=== PATIENT | male | born 1940 | race Caucasian/White ===

== ENCOUNTER 2020-10-13 12:43 | Inpatient (IN) | payer OTHER ==
[~2020-10-13] VITALS: Ht 180.3 cm; Wt 66.7 kg
--- NOTE | 2020-10-13 12:43 | NUR ---
BIBRA 102 FROM [facility] C/O BRIGHT RED VOMITING AND BLACK TARRY STOOL STARTED YESTERDAY. TO ER BED 8, HOOKED TO CLAIM CLERK, BP CUFF AND POX. CHANGED TO HOSP GOWN. PATIENT NOTED W TRACHEOSTOMY, ON COOL AEROSOL AT 6LPM O2, G-TUBE AND FLORES CATHETER. WARM BLANKET PROVIDED, PATIENT AAO x 1. BREATHING EVEN AND UNLABORED. AWAITING MD HEBERT.
--- NOTE | 2020-10-13 12:44 | NUR ---
DR BARNETT AT BEDSIDE
[2020-10-13] MEDS ORDERED: PANTOPRAZOLE 40 MG VIAL ONE ×2 (12:57→17:15)
[2020-10-13] MEDS ORDERED: CEFTRIAXONE 1GM BAG (ER ONLY) 50 ML IV ONE (12:57)
[2020-10-13] MEDS ORDERED: CEFTRIAXONE 1GM BAG (ER ONLY) 1 GM/50 ML PIGGYBACK IV ONE (13:00)
[2020-10-13] MEDS ORDERED: PANTOPRAZOLE 80 MG in IV NS 0.9% 500 ML IV ONE (13:00)
[2020-10-13] MEDS ORDERED: PANTOPRAZOLE 80 MG in IV NS 0.9% 100 ML IV ONE (13:00)
[2020-10-13 13:06] LABS: BASOPHILS % (AUTO) 0.2 % (0.0-2.0); EOSINOPHILS % (AUTO) 0.3 % (0.0-6.0); HEMATOCRIT 34 % (39-51); HEMOGLOBIN 11.1 g/dL (13.5-17.5); LYMPHOCYTES # (AUTO) 0.5 /CMM (0.8-4.8); LYMPHOCYTES % (AUTO) 4.2 % (20.0-44.0); MEAN CORPUSCULAR HGB CONC 33 g/dl (31.0-36.0); MEAN CORPUSCULAR VOLUME 97 fL (80-96); MONOCYTES # (AUTO) 0.8 /CMM (0.1-1.30); NEUTROPHILS # (AUTO) 11.5 /CMM (1.8-8.9); NEUTROPHILS % (AUTO) 89.3 % (43.0-81.0); PLATELET COUNT (AUTO) 387 /CMM (150-450); RED BLOOD CELL COUNT(AUTO) 3.51 MIL/uL (4.5-6.0); WHITE BLOOD COUNT (AUTO) 12.9 K/uL (4.3-11.0)
[2020-10-13 13:14] LABS: CALCIUM, SERUM 9.6 mg/dL (8.5-10.1); CARBON DIOXIDE 28 mmol/L (21-32); CHLORIDE 101 mmol/L (98-107); CREATININE 0.9 mg/dL (0.6-1.3); GLUCOSE 140 mg/dL (74-106); POTASSIUM 4.6 mmol/L (3.5-5.1); SODIUM SERUM 137 mmol/L (136-145); UREA NITROGEN, BLOOD 50 mg/dL (7-18)
[2020-10-13 13:21] LABS: ALANINE AMINOTRANSFERASE 23 U/L (12-78); ALBUMIN 2.8 g/dL (3.4-5.0); ALKALINE PHOSPHATASE 122 U/L (46-116); ASPARTATE AMINOTRANSFERASE 19 U/L (15-37); BILIRUBIN,DIRECT 0.1 mg/dL (0.0-0.2); BILIRUBIN,TOTAL 0.4 mg/dL (0.2-1.0); LIPASE 83 U/L (73-393); TOTAL PROTEIN, SERUM 8.4 g/dL (6.4-8.2)
--- NOTE | 2020-10-13 13:22 | NUR ---
MOVE SHEET SUBMITTED.
--- NOTE | 2020-10-13 13:34 | NUR ---
[facility] CALLED LOG SORTER PAGED.
--- NOTE | 2020-10-13 13:36 | NUR ---
PATIENT BACK FROM CT SCAN. PER HAM STRIPPER, NOT ABLE TO DO CT ABDOMEN W CONTRAST DUE TO PATIENTS SHAKING. PATIENT IS COOL TO TOUCH, PROVIDED PATIENT WITH WARM BLANKET AND PAIR OF SOCKS. MADE AWARE
[2020-10-13] MEDS ORDERED: QUET50TA GT (13:53)
[2020-10-13] MEDS ORDERED: LORA-259 GT (13:53)
[2020-10-13] MEDS ORDERED: ASCO500C17 GT (13:53)
[2020-10-13] MEDS ORDERED: ASPI-1169 GT (13:53)
[2020-10-13] MEDS ORDERED: ALBU0.633 IH (13:53)
[2020-10-13] MEDS ORDERED: SENN8.6T19 GT (13:53)
[2020-10-13] MEDS ORDERED: CALC500T89 GT (13:53)
[2020-10-13] MEDS ORDERED: MULT-439 GT (13:53)
[2020-10-13] MEDS ORDERED: CLON0.5T GT (13:53)
[2020-10-13] MEDS ORDERED: MAGN400O6 GT (13:53)
[2020-10-13] MEDS ORDERED: AMIN887L GT (13:53)
[2020-10-13] MEDS ORDERED: FERR325T23 GT (13:53)
[2020-10-13] MEDS ORDERED: RIVA10TA GT (13:53)
[2020-10-13] MEDS ORDERED: ACET325T53 GT (13:53)
[2020-10-13] MEDS ORDERED: ATOR40TA GT (13:53)
[2020-10-13] MEDS ORDERED: SODI100037 GT (13:53)
[2020-10-13] MEDS ORDERED: ACETAMINOPHEN 325 MG TABLET PO PRN (14:00)
[2020-10-13] MEDS ORDERED: Z GUARD REMEDY 2 OZ OINT TP PRN (14:00)
[2020-10-13] MEDS ORDERED: ZOLPIDEM TARTRATE 5 MG TABLET PO PRN (14:00)
[2020-10-13] MEDS ORDERED: IV NS 0.9% 1,000 ML IV PRN (14:00)
[2020-10-13] MEDS ORDERED: ONDANSETRON HCL/PF 4 MG/2 ML VIAL IVP PRN (14:00)
--- NOTE | 2020-10-13 14:42 | NUR ---
DR ORTEGA MADE AWARE OF PATIENT STILL SHAKING. RECEIVED VERBAL ORDER OF ATIVAN 1MG IVP. CARRIED OUT
[2020-10-13] MEDS ORDERED: LORAZEPAM INJ 2 MG/ML VIAL ONE (14:44)
[2020-10-13] MEDS ORDERED: LORAZEPAM INJ 2 MG/ML VIAL IV ONE (15:00)
--- NOTE | 2020-10-13 15:09 | NUR ---
PICKED UP BY [facility] VIA [facility] FOR CT SCAN
[2020-10-13] MEDS ORDERED: IOHEXOL-300 100 ML VIAL IV ONE (15:10)
[2020-10-13] MEDS ORDERED: IV NS 0.9% 250 ML IV ONE (15:11)
--- NOTE | 2020-10-13 15:30 | NUR ---
RAPID AND PCR COVID SWAB DONE AND SENT TO LAB
--- NOTE | 2020-10-13 16:30 | NUR ---
GOT BED 102
--- NOTE | 2020-10-13 16:39 | NUR ---
LAB CALLED PT COVID RESULT NEGATIVE (-)
[2020-10-13] MEDS: PANTOPRAZOLE 40 MG VIAL IV SCH (17:22)
--- NOTE | 2020-10-13 18:55 | NUR ---
REPORT GIVEN TO PEREZ DOWNS OF [facility]
--- NOTE | 2020-10-13 19:40 | NUR ---
MEDICAL INSURANCE CLERK NOTES RECEIVED PTS FROM ER, A MALE 79Y/O NON VERBAL ,WITH ADMITTING DX OF GI BLEED , PTS ON COOL AEROSOL AT 6LITERS OF 02 , SHILEY #[address] -119 ON THE MONITOR, NO SOB NO DISTRESS NOTED SATING 98% ADMISSION ROUTINE CARE RENDERED , ADMISSION VERIFICATION OF ORDER DONE ,ORDER NOTED AND CARRIED OUT , BODY CHECKED DONE NOTED WITH REDNESS ON SACROCOCCYX , WITH RIGHT AC G#18 INTACT AND PATENT , IVF OF NS AT 100CC/HR INFUSING WELL , ALL NEEDS ATTENDED TOO PTS IS NPO STATUS V/S STABLE AFEBRILE .WILL CONTINUE TO MONITOR PTS .
[2020-10-13 19:56] VITALS: BP 144/77
[2020-10-13] MEDS: IV NS 0.9% 1,000 ML IV PRN (20:54)
[2020-10-14] VITALS: BP 96/55
[2020-10-14] MEDS ORDERED: ACETAMINOPHEN 650 MG/SUPP.RECT RC PRN
--- NOTE | 2020-10-14 00:10 | NUR ---
telecommunications field technician notes pts noted with temp 100 tylenol suppository given as ordered colling measures applied will continue to monitor pts.
--- NOTE | 2020-10-14 01:00 | NUR ---
telecasting engineer notes PTS NOTED BITTING AND PULLING INVASIVE TUBING , WILL CONTINUE TO MONITOR PTS.
[2020-10-14 04:00] VITALS: BP 102/55
[2020-10-14 05:33] LABS: EOSINOPHILS % (AUTO) 0.6 % (0.0-6.0); HEMATOCRIT 30 % (39-51); HEMOGLOBIN 10.2 g/dL (13.5-17.5); LYMPHOCYTES # (AUTO) 0.4 /CMM (0.8-4.8); LYMPHOCYTES % (AUTO) 1.7 % (20.0-44.0); MEAN CORPUSCULAR HGB CONC 34 g/dl (31.0-36.0); MEAN CORPUSCULAR VOLUME 95 fL (80-96); MONOCYTES # (AUTO) 0.3 /CMM (0.1-1.30); MONOCYTES % (AUTO) 1.5 % (2.0-12.0); NEUTROPHILS # (AUTO) 21.4 /CMM (1.8-8.9); NEUTROPHILS % (AUTO) 96.2 % (43.0-81.0); PLATELET COUNT (AUTO) 369 /CMM (150-450); RED BLOOD CELL COUNT(AUTO) 3.19 MIL/uL (4.5-6.0); WHITE BLOOD COUNT (AUTO) 22.3 K/uL (4.3-11.0)
[2020-10-14 05:59] LABS: ALANINE AMINOTRANSFERASE 19 U/L (12-78); ALBUMIN 2.6 g/dL (3.4-5.0); ALKALINE PHOSPHATASE 102 U/L (46-116); ASPARTATE AMINOTRANSFERASE 19 U/L (15-37); BILIRUBIN,TOTAL 0.7 mg/dL (0.2-1.0); CALCIUM, SERUM 9.1 mg/dL (8.5-10.1); CARBON DIOXIDE 27 mmol/L (21-32); CHLORIDE 104 mmol/L (98-107); CREATININE 1.4 mg/dL (0.6-1.3); GLUCOSE 107 mg/dL (74-106); MAGNESIUM 1.9 mg/dL (1.8-2.4); PHOSPHORUS 5.5 mg/dL (2.5-4.9); POTASSIUM 4.4 mmol/L (3.5-5.1); SODIUM SERUM 143 mmol/L (136-145); TOTAL PROTEIN, SERUM 7.8 g/dL (6.4-8.2); UREA NITROGEN, BLOOD 58 mg/dL (7-18)
[2020-10-14 06:00] LABS: IRON, SERUM 7 ug/dl (50-175); TOTAL IRON BINDING CAPACITY 223 ug/dl (250-450)
--- NOTE | 2020-10-14 06:00 | NUR ---
SLUBBER OPERATOR NOTES PTS STILL NOTED WITH PULLING INVASIVE TUBING . FREQUENT CHECK DONE .MD MADE AWARE DR OJEDA WITH ORDER BILATERAL MITTENS TO PREVENT FROM PULLING INVASIVE TUBING, WILL CONTINUE TO MONITOR.
--- NOTE | 2020-10-14 06:38 | NUR ---
PAYROLL ADMINISTRATIVE ASSISTANT NOTES PTS REMAINS IN BED ON COOL AEROSOL ,NPO STATUS , ON BILATERAL MITTENS TO PREVENT PULLING INVASIVE TUBING ON TELE SR ON THE MONITOR .NO SOB NO DISTRESS NOTED .WILL ENDORSE TO RN DAY SHIFT FOR CONTINUITY OF CARE.
--- NOTE | 2020-10-14 07:38 | NUR ---
RN OPENING NOTE RECEIVED PATIENT IN BED WITH HOB AT SEMI HERNANDEZ'S POSITION. PATIENT IS CURRENTLY ON TPIECE WITH 6L OF O2. SUCTION EQUIPMENT IS AT BEDSIDE. PATIENT IS AOX1. FLORES CATHETER IS IN PLACE. SACRAL REDNESS NOTED. GTUBE IS IN PLACE WITH NO REDNESS. RAC IS IN PLACE, PATENT, AND HAS NO SIGNS OF INFILTRATION. BED IS LOCKED IN THE LOWEST POSITION, 3 GUARD RAILS RAISED, CALL SAMUELS WITHIN REACH, AND ALL HOSPITAL SAFETY PRECAUTIONS ARE BEING FOLLOWED.
--- NOTE | 2020-10-14 07:49 | NUR ---
pt. is awake but unable to follow commands decrease o2 flow from 6 lpm to 2 lpm o2 flow. spo2 98% on 2 lpm o2 flow, no increase work of breathing noted. Addendum: 10/14/20 at 0752 by GLENN MARTINO RT Amended: Links added.
[2020-10-14 08:00] VITALS: BP 96/50
[2020-10-14] MEDS: PANTOPRAZOLE 40 MG VIAL IV SCH ×2 (08:07→17:07)
[2020-10-14] MEDS ORDERED: CEFTRIAXONE 1 G in IV D5W 50 ML IV SCH (09:00)
[2020-10-14] MEDS ORDERED: diphenhydrAMINE HCL 50 MG/ML VIAL IV PRN (11:00)
[2020-10-14] MEDS: IV NS 0.9% 1,000 ML IV PRN (11:53)
[2020-10-14 12:00] VITALS: BP 106/56
[2020-10-14] MEDS ORDERED: LEVOFLOXACIN 500 MG /D5W 100ML 500 MG in PREMIX 1 EA IV ONE (12:00)
[2020-10-14] MEDS ORDERED: PIPERACILLIN /TAZOBACTAM 4.5 G in IV D5W 50 ML IV SCH (12:00)
[2020-10-14 16:00] VITALS: BP 96/56
--- NOTE | 2020-10-14 18:58 | NUR ---
RN CLOSING NOTE PATIENT IS IN BED WITH HOB AT SEMI FOWLERS POSITION. TPIECE WITH 2L ARE APPLIED. PATIENT IS AOX1. SACRAL REDNESS IS NOTED. GTUBE IS IN PLACE WITH NO SIGNS OF INFECTION BUT HAS GREENISH DRAINAGE. RAC #18 IS PATENT, INTACT, AND HAS NO SIGNS OF INFILTRATION. BED IS LOCKED IN THE FLORES IS IN PLACE. BED IS LOCKED IN THE LOWEST POSITION, 3 GUARD RAILS RAISED, CALL SAMUELS WITHIN REACH, AND ALL HOSPITAL SAFETY PRECAUTIONS ARE BEING FOLLOWED.
[2020-10-14 20:00] VITALS: BP 105/58
[2020-10-15] VITALS (7 sets, daily range): BP systolic 109–139; BP diastolic 58–91
[2020-10-15] MEDS: IV NS 0.9% 1,000 ML IV PRN ×2 (02:00→13:22)
--- NOTE | 2020-10-15 06:30 | NUR ---
RN CLOSING NOTE, PATIENT IS IN BED, A/O TO SELF, ON T-PIECE WITH 2L 02, SR WITH HR 90S, IN TELE MONITOR AT THIS TIME, MOSTLY SINUS 110-110S, RAC #18 IS PATENT INTACT, NO SIGNS OF INFILTRATION, IVF INFUSING ORDERED, WELL AND PATIENT TOLERATED WELL, NPO FOR POSSIBLE NEPHROSTOMY, FLORES IS IN PLACE, WITH 400ML OUTPUT DURING THE NIGHT, NO SIGNIFICANT CHANGE IN CONDITION DURING THE NIGHT, BED IS LOCKED IN THE LOWEST POSITION, CALL SAMUELS WITHIN REACH, SAFETY PRECAUTIONS IN PLACE, WILL ENDORSE CONTINUITY OF CARE TOO ONCOMING NURSE.
--- NOTE | 2020-10-15 07:45 | NUR ---
CELL MAKER NOTES PATIENT RECEIVED IN BED, ALERT AND ORIENTED X 1. T-PIECE IN PLACE, 2 LITERS OXYGEN WITH NO SIGNS OF RESPIRATORY DISTRESS AT THIS TIME, WITH NON-LABORED BREATHING AN NO SOB NOTED. ON SALES DIRECTOR SINUS RHYTHM 90'S. PATIENT HAS BILATERAL SOFT MITTENS IN PLACE, WITH ADEQUATE SKIN CIRCULATION PRESENTS. FLORES CATHETER INTACT AND IN PLACE WITH URINE FLOWING BY GRAVITY. G-TUBE SITE INTACT AND IN PLACE CLAMPED AT THIS TIME. PATIENT PRESENTING WITH NO PAIN OR DISCOMFORT AT THIS TIME. IV ACCESS INTACT AND PATENT, CURRENTLY INFUSING IV FLUIDS. SAFETY PRECAUTIONS IMPLEMENTED WITH BED LOCKED, BILATERAL SIDE RAILS UP, BED IN LOWEST POSITION, BED ALARM ON, AND CALL LIGHT WITHIN EASY REACH. WILL CONTINUE TO MONITOR PATIENT.
[2020-10-15] MEDS: PANTOPRAZOLE 40 MG VIAL IV SCH ×2 (08:18→16:55)
[2020-10-15 08:36] LABS: BILIRUBIN,URINE NEGATIVE (NEGATIVE); COLOR,URINE YELLOW (YELLOW); LEUKOCYTE ESTERASE ,URINE LARGE (NEGATIVE); NITRITE, URINE POSITIVE (NEGATIVE); PH,URINE 8.5 (5.0-8.0); PROTEIN,URINE 30 mg/dl (NEGATIVE); UGLUCOSE NEGATIVE (NEGATIVE); UROBILINOGEN,URINE 0.2 EU/dL (0.2)
--- NOTE | 2020-10-15 09:35 | NUR ---
WOUND CARE CONSULT: REVIEWED CHART, NURSING DOCUMENTATION AND PHOTO WHICH INDICATES SACRAL SCAR, PRESENT ON ADMISSION. RECOMMENDATIONS MADE FOR SKIN PROTECTION. DISCUSSED WITH NURSING STAFF. MD IN AGREEMENT WITH PLAN OF CARE. PT IS ON [facility] LOW AIRLOSS BED.
[2020-10-15 09:43] LABS: BASOPHILS % (AUTO) 0.1 % (0.0-2.0); EOSINOPHILS % (AUTO) 5.4 % (0.0-6.0); HEMATOCRIT 28 % (39-51); HEMOGLOBIN 9.2 g/dL (13.5-17.5); LYMPHOCYTES # (AUTO) 0.4 /CMM (0.8-4.8); LYMPHOCYTES % (AUTO) 2.4 % (20.0-44.0); MEAN CORPUSCULAR HGB CONC 33 g/dl (31.0-36.0); MEAN CORPUSCULAR VOLUME 97 fL (80-96); MONOCYTES # (AUTO) 0.4 /CMM (0.1-1.30); MONOCYTES % (AUTO) 2.2 % (2.0-12.0); NEUTROPHILS # (AUTO) 14.9 /CMM (1.8-8.9); NEUTROPHILS % (AUTO) 89.9 % (43.0-81.0); PLATELET COUNT (AUTO) 306 /CMM (150-450); RED BLOOD CELL COUNT(AUTO) 2.92 MIL/uL (4.5-6.0); WHITE BLOOD COUNT (AUTO) 16.6 K/uL (4.3-11.0)
[2020-10-15 09:55] LABS: CALCIUM, SERUM 8.6 mg/dL (8.5-10.1); POTASSIUM 3.5 mmol/L (3.5-5.1)
[2020-10-15 11:31] LABS: BACTERIA,URINE 1+ /HPF (None Seen); RBC,URINE 0-2 /HPF (0-2); SQUAMOUS EPITHELIAL CELL,UR Rare /HPF (None Seen); TRIPLE PHOSPHATE CRYSTAL,UR Moderate /HPF (None Seen)
[2020-10-15] MEDS ORDERED: LEVOFLOXACIN 250 MG /D5W 50 ML 250 MG in PREMIX 1 EA IV SCH (12:00)
--- NOTE | 2020-10-15 12:00 | NUR ---
MARKETING AND COMMUNICATIONS OFFICER NOTES HELD LEVAQUIN DOSE SCHEDULE AT 1200 DUE TO PATIENT SKIN RED/PINK TONE. INFORMED RAFAL KLEIN DIESEL MOTOR MECHANIC ORDERED TO HOLD DOSE FOR TODAY AND TO CONTINUE TO MONITOR PATIENT.
[2020-10-15] MEDS ORDERED: FENTANYL PF 250MCG/5ML AMPUL IV ONE (16:00)
[2020-10-15] MEDS ORDERED: NALOXONE PREFILLED SYRINGE 2 MG/2 ML SYRINGE IV ONE (16:00)
[2020-10-15] MEDS ORDERED: MIDAZOLAM HCL 5MG/ML VIAL 25 MG/5 ML VIAL IV ONE (16:00)
[2020-10-15] MEDS: MEROPENEM 500 MG in IV NS 0.9% 50 ML IV SCH (16:29)
[2020-10-15] MEDS: VANCOMYCIN 1 GM in IV D5W 250 ML IV SCH (16:56)
--- NOTE | 2020-10-15 18:30 | NUR ---
HEALTH ASSESSMENT AND TREATMENT TEACHER NOTES PATIENT IN BED SCHEDULED FOR EGD AWAITING OR NURSE, ALERT AND ORIENTED X 1. T-PIECE IN PLACE, 2 LITERS OXYGEN WITH NO SIGNS OF RESPIRATORY DISTRESS AT THIS TIME, WITH NON-LABORED BREATHING AN NO SOB NOTED. ON MAINTENANCE AND REPAIR WORKER SINUS RHYTHM 90'S. PATIENT HAS BILATERAL SOFT MITTENS IN PLACE, WITH ADEQUATE SKIN CIRCULATION PRESENTS. FLORES CATHETER INTACT AND IN PLACE WITH URINE FLOWING BY GRAVITY. G-TUBE SITE INTACT AND IN PLACE CLAMPED AT THIS TIME. PATIENT PRESENTING WITH NO PAIN OR DISCOMFORT AT THIS TIME. IV ACCESS INTACT AND PATENT, CURRENTLY INFUSING IV FLUIDS. MET ALL OF PATIENT'S NEEDS. SAFETY PRECAUTIONS IMPLEMENTED. PATIENT WILL GO FOR EGD AND WILL ENDORSE PLAN OF CARE TO UPCOMING RN.
--- NOTE | 2020-10-15 19:20 | NUR ---
REPORT RECIEVED FROM SHARON RN FROM POST OP; PT HAD EGD PERFORMED AND WAS TO TRANSFER TO [facility] BED 1 FROM [facility]. CALL MADE TO JENNIFER AND NURSE NOT READY TO GIVE REPORT; NOTIFIED SOON A AND P MECHANIC THAT PT WAS BEING BROUGHT UP FROM OR TO ROOM.
--- NOTE | 2020-10-15 19:30 | NUR ---
PT PLACED IN 327 BED 1 BY OR STAFF. PT TRACHED AND WITH T PIECE. CONNECTED TO WALL OXYGEN AT 2LITERS. PT IN NO APPARENT DISTRESS. POST OP VS MONITORING INITATED. PT IN NO APPARENT DISTRESS. NEW ORDERS RECIEVED. WILL CONT TO MONITOR. REPORT WRITTEN OUT BY DAY SHIFT YARELI DALAL. WILL CONT TO MONITOR. IVF NS RUNNING TO LEFT UPPER ARM MIDLINE.
[2020-10-15] MEDS ORDERED: METOCLOPRAMIDE HCL 10 MG/2 ML VIAL IV PRN (20:00)
--- NOTE | 2020-10-15 20:11 | NUR ---
RN NOTE AWAITING FOR PT TO COME FROM EGD TO TRANSFER PT TO [facility]. FOUND OUT PT WAS ALREADY BROUGHT TO [facility] AT 1920. GAVE REPORT TO KOREY.
[2020-10-15] MEDS ORDERED: GLUCERNA 1.2 1,000 ML BOTTLE NG PRN (20:30)
--- NOTE | 2020-10-15 20:37 | NUR ---
gtf order clarified pt to start glucerna 1.2 alice at 30 ml per hour since npo to advance to 50 ml per hour x20 hours. fns consult ordered to review gtf for tomorrow.
[2020-10-16] VITALS: BP 148/88
--- NOTE | 2020-10-16 | NUR ---
gtf started at 30 ml per hour. no residual noted, gt is patent and auscultated. given 120 ml flush with water.
[2020-10-16] MEDS: MEROPENEM 500 MG in IV NS 0.9% 50 ML IV SCH ×4 (00:03→23:10)
[2020-10-16] MEDS: METOCLOPRAMIDE HCL 10 MG/2 ML VIAL IV SCH ×4 (00:16→17:27)
--- NOTE | 2020-10-16 02:00 | NUR ---
gtf residual noted to be 20 ml, rate increased to 40 ml
[2020-10-16] MEDS: VANCOMYCIN 1 GM in IV D5W 250 ML IV SCH ×2 (03:46→16:46)
[2020-10-16 04:00] VITALS: BP 135/71
--- NOTE | 2020-10-16 04:00 | NUR ---
gtf residual noted to be 30; rate increased to 50 ml per hour.
[2020-10-16 08:00] VITALS: BP 133/133
[2020-10-16] MEDS: PANTOPRAZOLE 40 MG VIAL IV SCH ×2 (08:52→17:27)
[2020-10-16] MEDS: IV NS 0.9% 1,000 ML IV PRN ×2 (09:09→23:10)
--- NOTE | 2020-10-16 14:00 | NUR ---
SPUTUM CULTURE SENT PER RESP. TX.
[2020-10-16 16:00] VITALS: BP 136/63
--- NOTE | 2020-10-16 18:00 | NUR ---
RECEIVED PT. IN AM TRACH IN PLACE. BIANCA. MITTENS ON .TUBE FEED. AND IV INFUSING F/C IN PLACE. NO ACUTE DISTRESS.OVER ALL SKIN COLOR RATHER BRIGHT PINK,HAS BEEN PREVIOUSLY NOTED.
[2020-10-16 20:00] VITALS: BP 148/83
--- NOTE | 2020-10-17 00:15 | NUR ---
tube feeding held for scheduled 4 hours off.
--- NOTE | 2020-10-17 00:30 | NUR ---
SHARLA FAMILY/FRIEND CALLED UPDATED WITH PATIENTS CURRENT CONDITION, QUESTIONS CONCERNS ADDRESSED.
[2020-10-17] MEDS: VANCOMYCIN 1 GM in IV D5W 250 ML IV SCH ×2 (02:50→16:52)
--- NOTE | 2020-10-17 03:22 | NUR ---
informed supervising broker keh of music intern recommendations to change tf to jevity new orders recieved to start jevity 70 ml per hour x24hrs.
[2020-10-17] MEDS ORDERED: JEVITY 1.2 CAL 1,000 ML BOTTLE GT PRN (03:30)
[2020-10-17] MEDS: JEVITY 1.2 CAL 1,000 ML BOTTLE GT PRN (05:55)
[2020-10-17] MEDS: MEROPENEM 500 MG in IV NS 0.9% 50 ML IV SCH ×3 (05:58→23:02)
--- NOTE | 2020-10-17 07:52 | NUR ---
MS/RN OPENING NOTES RECEIVED PATIENT ON BED. ALERT AND ORIENTED X1. PATIENT IS ON 2L OXYGEN VIA T- PIECE SATURATION 100%. PATIENT IN NO APPARENT RESPIRATORY DISTRESS NOTED. NO SIGN AND SYMPTOM OF PAIN NOTED AT THIS TIME. WILL CONTINUE TO MONITOR.
[2020-10-17 08:00] VITALS: BP 138/75
[2020-10-17 08:03] LABS: EOSINOPHILS % (AUTO) 5.8 % (0.0-6.0); HEMATOCRIT 29 % (39-51); HEMOGLOBIN 9.6 g/dL (13.5-17.5); LYMPHOCYTES # (AUTO) 0.8 /CMM (0.8-4.8); MEAN CORPUSCULAR HGB CONC 34 g/dl (31.0-36.0); MEAN CORPUSCULAR VOLUME 96 fL (80-96); MONOCYTES # (AUTO) 0.5 /CMM (0.1-1.30); MONOCYTES % (AUTO) 6.3 % (2.0-12.0); NEUTROPHILS # (AUTO) 6.7 /CMM (1.8-8.9); NEUTROPHILS % (AUTO) 78.9 % (43.0-81.0); PLATELET COUNT (AUTO) 254 /CMM (150-450); RED BLOOD CELL COUNT(AUTO) 2.97 MIL/uL (4.5-6.0); WHITE BLOOD COUNT (AUTO) 8.5 K/uL (4.3-11.0)
[2020-10-17 08:23] LABS: CALCIUM, SERUM 8.9 mg/dL (8.5-10.1); CREATININE 0.7 mg/dL (0.6-1.3)
[2020-10-17] MEDS: METOCLOPRAMIDE HCL 10 MG/2 ML VIAL IV SCH ×3 (08:50→17:33)
[2020-10-17] MEDS: PANTOPRAZOLE 40 MG VIAL IV SCH ×2 (08:50→17:33)
[2020-10-17 09:43] LABS: POTASSIUM 2.7 mmol/L (3.5-5.1)
--- NOTE | 2020-10-17 09:55 | NUR ---
MS/RN NOTES POTASSIUM 2.7 SARAH FONG ATM MECHANIC IS AWARE. NO NEW ORDER AT THIS TIME.
[2020-10-17] MEDS: IV NS 0.9% 1,000 ML IV PRN (11:09)
[2020-10-17] MEDS: POTASSIUM CL. PREMIX PERIPHER. 50 ML IV SCH ×6 (11:09→15:18)
[2020-10-17] MEDS ORDERED: LORAZEPAM 1 MG TABLET GT PRN (13:00)
[2020-10-17] MEDS: PROSOURCE / PROSTAT (PYXIS) 30 ML UDC GT SCH ×2 (13:08→17:33)
[2020-10-17 16:00] VITALS: BP 120/60
[2020-10-17] MEDS ORDERED: Medication Not On Formulary EA (Quetiapine Fumarate (Seroquel) 50 MG) GT SCH (17:00)
[2020-10-17] MEDS: clonazePAM 0.5 MG TABLET GT SCH (17:33)
--- NOTE | 2020-10-17 19:30 | NUR ---
MS/RN OPENING NOTE RECEIVED PATIENT RESTING IN BED. AWAKE, ALERT AND ORIENTED X 1. CONTINUES ON MECHANICA VENT WITH PATIENT TOLERATING SETTINGS WELL. IV ACCESS TO LEFT UPPER ARM INTACT AND PATENT. CONTINUES ON IV FLUIDS. FLORES CATHETER PATENT DRAINING CLEAR YELLOW URINE. NO SIGNS OR SYMPTOMS OF PAIN NOTED AT THIS TIME. CALL LIGHT WITHIN REACH. ASPIRATION, FALL AND SAFETY PRECAUTIONS MAINTAINED. WILL CONTINUE TO MONITOR.
--- NOTE | 2020-10-17 19:38 | NUR ---
MS/RN CLOSING NOTES PATIENT IS ON BED. NON VERBAL. PATIENT IS ON 5L OXYGEN VIA T PIECE FIO2 28%. PATIENT IN NO APPARENT RESPIRATORY DISTRESS NOTED. NO SIGN AND SYMPTOM OF PAIN NOTED AT THIS TIME. SEEN AND EXAMINED BY MD WITH ORDERS MADE AND CARRIED OUT. ALL DUE MEDICATIONS WAS GIVEN. SAFETY PRECAUTIONS WAS IN PLACED. BED IN LOWEST POSITION AND LOCKED. WILL ENDORSED TO SOLE FILLER FOR KAIN. Addendum: 10/17/20 at 1941 by JAVON FREED RN ERROR
--- NOTE | 2020-10-17 19:42 | NUR ---
MS/RN CLOSING NOTES PATIENT IS ON BED. ALERT AND ORIENTED X1. PATIENT IS ON 5L OXYGEN VIA T PIECE FIO2 28%. PATIENT IN NO APPARENT RESPIRATORY DISTRESS NOTED. NO SIGN AND SYMPTOM OF PAIN NOTED AT THIS TIME. SEEN AND EXAMINED BY MD WITH ORDERS MADE AND CARRIED OUT. ALL DUE MEDICATIONS WAS GIVEN. SAFETY PRECAUTIONS WAS IN PLACED. BED IN LOWEST POSITION AND LOCKED. WILL ENDORSED TO STREET VENDOR FOR KAIN.
[2020-10-17 20:00] VITALS: BP 142/72
--- NOTE | 2020-10-17 21:35 | NUR ---
MS/TELE/RN RECEIVED PATIENT AWAKE, ALERT, COMFORTABLE, NO C/O PAIN, NO DISTRESS NOTED, ON T PIECE WITH 5L O2, FALL PRECAUTIONS PER PROTOCOL, CALL LIGHT IN REACH. WILL MONITOR.
[2020-10-17] MEDS ORDERED: ATORVASTATIN 40 MG TABLET GT SCH (22:00)
[2020-10-18] MEDS: VANCOMYCIN 1 GM in IV D5W 250 ML IV SCH ×2 (02:26→15:32)
[2020-10-18] MEDS: JEVITY 1.2 CAL 1,000 ML BOTTLE GT PRN (05:58)
[2020-10-18] MEDS: MEROPENEM 500 MG in IV NS 0.9% 50 ML IV SCH (06:05)
--- NOTE | 2020-10-18 06:23 | NUR ---
PATIENT RECEIVED ON 28% AEROSOL T-TUBE, TOLERATING WITH NO DISTRESS/SOB NOTED. SUCTIONED FOR MINIMAL, THICK, YELLOW SECRETIONS. AMBU BAG AT BEDSIDE. PULSE OXIMETER ALARM AUDIBLE AND VISIBLE. Addendum: 10/18/20 at 0624 by ISAAC PHIPPS RT Amended: Links added.
--- NOTE | 2020-10-18 06:33 | NUR ---
MS/RN CLOSING NOTE PATIENT CURRENTLY SLEEPING IN BED. ALERT AND ORIENTED X 1. NO SIGNS OR SYMPTOMS OF PAIN NOTED THIS SHIFT. CONTINUES ON JEVITY TUBE FEED WITH 50CC RESIDUAL NOTED. IV ACCESS TO LEFT UPPER ARM INTACT AND PATENT. CONTINUES ON IV VANCOMYCIN AND MERAPENEM. FLORES CATHETER PATENT DRAINING CLEAR YELLOW URINE. VS: BP 142/72 HR 78 RR 16 T 98.4 O2 SAT 96% ON 5L T-PIECE. NO SIGNS OR SYMPTOMS OF RESPIRATORY DISTRESS THIS SHIFT. CALL LIGHT WITHIN REACH. ASPIRATION, FALL AND SAFETY PRECAUTIONS MAINTAINED. WILL ENDORSE PLAN OF CARE TO ONCOMING SHIFT.
--- NOTE | 2020-10-18 07:37 | NUR ---
MS/RN OPENING NOTES RECEIVED PATIENT ON BED, AWAKE, ALERT AND ORIENTED X1. PATIENT IS ON 2L OXYGEN VIA T- PIECE SATURATION 96%. PATIENT IN NO APPARENT RESPIRATORY DISTRESS NOTED. NO SIGN AND SYMPTOM OF PAIN NOTED AT THIS TIME. WILL CONTINUE TO MONITOR.
[2020-10-18 08:21] VITALS: BP 122/98
[2020-10-18] MEDS: clonazePAM 0.5 MG TABLET GT SCH ×2 (08:34→16:37)
[2020-10-18] MEDS: METOCLOPRAMIDE HCL 10 MG/2 ML VIAL IV SCH ×3 (08:34→16:37)
[2020-10-18] MEDS: PANTOPRAZOLE 40 MG VIAL IV SCH ×2 (08:34→16:37)
[2020-10-18] MEDS: PROSOURCE / PROSTAT (PYXIS) 30 ML UDC GT SCH ×3 (08:40→16:37)
[2020-10-18] MEDS ORDERED: MULTIVIT W/MINERALS 1 TAB TABLET GT SCH (09:00)
[2020-10-18] MEDS ORDERED: ASCORBIC ACID 500 MG TABLET GT SCH (09:00)
[2020-10-18] MEDS ORDERED: FERROUS SULFATE (325 MG) 325 MG/TAB TABLET GT SCH (09:00)
[2020-10-18] MEDS ORDERED: SENNOSIDES 8.6 MG TABLET GT SCH (09:00)
[2020-10-18 09:47] LABS: BASOPHILS % (AUTO) 0.2 % (0.0-2.0); EOSINOPHILS % (AUTO) 6.5 % (0.0-6.0); HEMATOCRIT 29 % (39-51); HEMOGLOBIN 9.7 g/dL (13.5-17.5); LYMPHOCYTES # (AUTO) 2.3 /CMM (0.8-4.8); LYMPHOCYTES % (AUTO) 26.5 % (20.0-44.0); MEAN CORPUSCULAR HGB CONC 33 g/dl (31.0-36.0); MEAN CORPUSCULAR VOLUME 97 fL (80-96); MONOCYTES # (AUTO) 0.7 /CMM (0.1-1.30); MONOCYTES % (AUTO) 8.4 % (2.0-12.0); NEUTROPHILS # (AUTO) 5.1 /CMM (1.8-8.9); NEUTROPHILS % (AUTO) 58.4 % (43.0-81.0); PLATELET COUNT (AUTO) 252 /CMM (150-450); RED BLOOD CELL COUNT(AUTO) 3.01 MIL/uL (4.5-6.0); WHITE BLOOD COUNT (AUTO) 8.7 K/uL (4.3-11.0)
[2020-10-18 10:04] LABS: CALCIUM, SERUM 8.8 mg/dL (8.5-10.1); CREATININE 0.7 mg/dL (0.6-1.3); POTASSIUM 3.7 mmol/L (3.5-5.1)
[2020-10-18] MEDS ORDERED: METO-295 GT (11:24)
[2020-10-18] MEDS ORDERED: PANT40TA49 GT (11:24)
[2020-10-18] MEDS ORDERED: CEFE1PIG3 IV (11:24)
[2020-10-18] MEDS ORDERED: CEFEPIME 1 GM in IV D5W 50 ML IV SCH (14:00)
[2020-10-18] MEDS ORDERED: MEROPENEM 500 MG in IV NS 0.9% 50 ML IV SCH (15:00)
[2020-10-18 16:00] VITALS: BP 144/87
--- NOTE | 2020-10-18 19:07 | NUR ---
MS/RN CLOSING NOTES PATIENT IS ON BED. ALERT AND ORIENTED X1. PATIENT IN ROOM AIR SATURATION 99%. PATIENT IN NO APPARENT RESPIRATORY DISTRESS NOTED. SEEN AND EXAMINED BY MD WITH ORDERS MADE AND CARRIED OUT. ALL DUE MEDICATIONS WAS GIVEN. SAFETY PRECAUTIONS WAS IN PLACED. BED IN LOWEST POSITION AND LOCKED. PATIENT IS FOR DISCHARGE GIVE REPOT TO JENNIFER DOWNS. WILL ENDORSED TO PRODUCT CONSULTANT FOR KAIN.
[2020-10-18] MEDS ORDERED: CEFEPIME 2 GM in IV D5W 100 ML IV SCH (21:00)
--- NOTE | 2020-10-18 21:10 | NUR ---
PT DISCHARGED; VS WNL, PT BEING PICKED UP BY [id number] REPORT GIVEN TO JING SAMAYOA. PT BEING DISCHARGED WITH FLORES CATHETER, AND MARY MIDLINE. MIDLINE FLUSHED AND WORKING GOOD NOS/S OF OCMPLICATIONS. G TUBE DISCONNECTED FLUSEHDED WITH WATER CLAMPED. NO LEAKAGE AT [facility]. PT TO BE TRANSPORTED ON GURNEY ON FI02 TO [facility] AT 28 PERCENT. PT BGOING BACK TO [facility] PER REPORT FROM JAVON REPORT WAS GIVEN TO JENNIFER AT FACILITY ALREADY.. Addendum: 10/18/20 at 2120 by KOREY SANCHEZ RN QIANA SIERRA ALSO
[2020-10-18 21:17] VITALS: BP 142/71
== END 2020-10-19 | DRG 720 ==
LOC: ER 12:47 → TRANSITION 15:30 → TELE1 18:47 → TELE 10-15 19:27 → MED 10-16 11:09
PROVIDERS: ADMIT Internal Medicine; ATTEND Nurse Practitioner Acute Care
PROC: 05HA33Z Insertion of Infusion Device into Left Brachial Vein, Percutaneous Approach (ICD-10-PCS; 2020-10-13)
PROC: 0T768DZ Dilation of Right Ureter with Intraluminal Device, Via Natural or Artificial Opening Endoscopic (ICD-10-PCS; principal; 2020-10-14)
PROC: BT16YZZ Fluoroscopy of Right Ureter using Other Contrast (ICD-10-PCS; 2020-10-14)
PROC: 0DB68ZX Excision of Stomach, Via Natural or Artificial Opening Endoscopic, Diagnostic (ICD-10-PCS; 2020-10-15)
DX: A41.9 Sepsis, unspecified organism (principal); N17.0 Acute kidney failure with tubular necrosis; N13.2 Hydronephrosis with renal and ureteral calculous obstruction; Z93.1 Gastrostomy status; G93.40 Encephalopathy, unspecified; F03.90 Unspecified dementia, unspecified severity, without behavioral disturbance, psychotic disturbance, mood disturbance, and anxiety; J96.10 Chronic respiratory failure, unspecified whether with hypoxia or hypercapnia; Z93.0 Tracheostomy status; R13.10 Dysphagia, unspecified; Z79.82 Long term (current) use of aspirin; Z79.51 Long term (current) use of inhaled steroids; Z79.899 Other long term (current) drug therapy; D63.8 Anemia in other chronic diseases classified elsewhere; G93.41 Metabolic encephalopathy; Z20.822 Contact with and (suspected) exposure to COVID-19; Z87.19 Personal history of other diseases of the digestive system; Z87.442 Personal history of urinary calculi; K29.70 Gastritis, unspecified, without bleeding; K22.11 Ulcer of esophagus with bleeding; R65.20 Severe sepsis without septic shock; N12 Tubulo-interstitial nephritis, not specified as acute or chronic; M06.9 Rheumatoid arthritis, unspecified; N21.0 Calculus in bladder; I48.91 Unspecified atrial fibrillation; K56.41 Fecal impaction; E87.0 Hyperosmolality and hypernatremia; N13.9 Obstructive and reflux uropathy, unspecified
CPT/HCPCS: 31720; 36415; 71045-TC; 74018; 80048-TC; 80053-TC; 80076-TC; 80202-TC; 81001; 83540-TC; 83605-TC; 83690-TC; 83735-TC; 84100-TC; 84484-TC; 85025-TC; 85730-TC; 86850-TC; 87040-TC; 87070-TC; 87081-TC; 87086-TC; 87186-TC; 88305-TC; 88313-TC; 88342; 94640-TC; 94760-TC; 94762-TC; 94799-TC; 99082-TC; A4216; A4217; A4623; A6403; C1769; C2617; C9113; G0378; J0696; J1956; J2060; J2185; J2250; J2310; J2405; J2704; J2765; J3010; J3370; J3480; J3490; J7030; J7050; J7060; Q9967; U0003